=== PATIENT | female | born 1950 | race Caucasian/White ===

== ENCOUNTER 2021-06-29 00:56 | Emergency (ER) | payer OTHER ==
[~2021-06-29] VITALS: Ht 154.9 cm; Wt 85.0 kg
[~2021-06-29 00:56] MED LIST: ALBU8.5H8 IH; ASPI-1450 PO; CARI-493 PO; DOCU-350 PO; DULO60CA98 PO; ESOM20CA31 PO; FLUT1DIS6 IH; FURO40 PO; LIDOP TD; METO50 PO; MOME17SP4 NASAL; OXYC-618 PO; OXYC30TA86 PO; POTA-185 PO; SUMA50TA17 PO
[2021-06-29] MEDS ORDERED: BUSP5TAB20 PO (02:01)
[2021-06-29] MEDS ORDERED: ATOR20TA86 PO (02:02)
[2021-06-29] MEDS ORDERED: GABA-1181 PO (02:04)
[2021-06-29 02:38] VITALS: BP 140/89
== END 2021-06-29 03:19 | disposition home or self-care (01) ==
LOC: EMS 00:58
DX: S80.01XA Contusion of right knee, initial encounter (principal); S50.12XA Contusion of left forearm, initial encounter; S00.11XA Contusion of right eyelid and periocular area, initial encounter; J45.909 Unspecified asthma, uncomplicated; I10 Essential (primary) hypertension; F17.210 Nicotine dependence, cigarettes, uncomplicated; W01.0XXA Fall on same level from slipping, tripping and stumbling without subsequent striking against object, initial encounter; Y93.89 Activity, other specified; Y92.89 Other specified places as the place of occurrence of the external cause; Y99.8 Other external cause status
CPT/HCPCS: 99283